=== PATIENT | female | born 1995 | race Caucasian/White ===

== ENCOUNTER 2019-08-11 06:21 | Emergency (ER) | payer OTHER ==
[2019-08-11 07:27] LABS: ACETAMINOPHEN <2.0 ug/mL; BLOOD UREA NITROGEN,BUN 11 mg/dL (7.0-18.0); CARBON DIOXIDE,CO2 27.5 mmol/L (21.0-32.0); CHLORIDE,CL 105 mmol/L (98-107); GLUCOSE RANDOM 102 mg/dL (74-106); POTASSIUM,K 3.8 mmol/L (3.5-5.1); SODIUM,NA 141 mmol/L (136-145)
--- NOTE | 2019-08-11 07:28 | EDM.PDOCBH ---
ED HPI GENERAL MEDICAL PROBLEM - General Chief Complaint: Behavioral/Psych Stated Complaint: SUICIDIAL IDEATION Time Seen by Provider: 08/11/19 07:15 Source of Information: Reports: Patient History Limitations: Reports: No Limitations - History of Present Illness INITIAL COMMENTS - FREE TEXT/NARRATIVE: 23-year-old female with history of bipolar disorder presents with suicidal ideation. She claims that she has been feeling down lately, feeling depressed. She has access to a 9 mm at home. Her same-sex fianc who she lives with at her house was previously seeing a male partner and yesterday decided to break it off with the male partner. She thought about killing herself but now claims that she would never do it because it would be too loud and messy. She denies any physical complaints or hallucinations or homicidal ideations. ROS: A 10-point review of systems, other than pertinent positives and negatives as stated per HPI, is otherwise negative PHYSICAL EXAM General: AOx4, GCS = 15, No distress HEENT: dry mucous membrane Neck: supple, no meningismus, no Kernig or Brudzinski Cardiac: S1S2 RRR Respiratory: CTAB, no crackles or rales, no wheezing Abdomen: Soft, nontender, no rebound or guarding, nondistended, no pulsatile mass. Back: nontender Musculoskeletal: NVI distally, no deformity Neuro: No focal deficits, CN 2 - 12 WNL. Psych: Denies HI, SI, VH, AH. MEDICAL DECISION MAKING: I reviewed the patients past medical records, lab and radiographic findings. I discussed the case with family members. My differential diagnosis included: Suicidal ideation, homicidal ideation, auditory hallucinations, electrolyte abnormalities. - Related Data Allergies Allergy/AdvReac Type Severity Reaction Status Date / Time cephalexin [From Keflex] Allergy Hives Verified 08/11/19 07:33 Penicillins Allergy Cannot Verified 08/11/19 07:33 Remember Home Meds: Home Meds ALPRAZolam [Xanax] 0.5 mg PO DAILY 08/11/19 [History] Citalopram Hydrobromide [Celexa] 40 mg PO DAILY 08/11/19 [History] Iron 27 mg PO DAILY 08/11/19 [History] Levothyroxine Sodium [Euthyrox] 137 mcg PO DAILY 08/11/19 [History] Lurasidone HCl [Latuda] 80 mg PO DAILY 08/11/19 [History] Lurasidone [Latuda] 100 mg PO QPM #30 tablet 08/11/19 [Rx] Topiramate [Topamax] 50 mg PO DAILY 08/11/19 [History] Topiramate [Topamax] 100 mg PO BEDTIME #30 tab 08/11/19 [Rx] ED ROS GENERAL - Review of Systems Review Of Systems: See Below (see dictation) ED EXAM, BEHAVIORAL HEALTH - Physical Exam Exam: See Below (see dictation) COURSE, BEHAVIORAL HEALTH COMP - Course Vital Signs: Last Vital Signs Temp 96.6 F L 08/11/19 06:40 Pulse 62 08/11/19 06:40 Resp 20 08/11/19 06:40 BP 131/92 H 08/11/19 06:40 Pulse Ox 98 08/11/19 06:40 Orders, Labs, Meds: Active Orders 24 hr Category Date Time Status EKG Documentation Completion [RC] STAT Care 08/11/19 06:36 Active Laboratory Tests 08/11/19 08/11/19 08/11/19 Range/Units 06:38 06:38 06:38 WBC (4.0-11.0) K/uL RBC (4.30-5.90) M/uL Hgb (12.0-16.0) g/dL Hct (36.0-46.0) % MCV (80.0-98.0) fL MCH (27.0-32.0) pg MCHC (31.0-37.0) g/dL RDW Std Deviation (28.0-62.0) fl RDW Coeff of Harmony (11.0-15.0) % Plt Count (150-400) K/uL MPV (7.40-12.00) fL Neut % (Auto) (48.0-80.0) % Lymph % (Auto) (16.0-40.0) % Teller % (Auto) (0.0-15.0) % Eos % (Auto) (0.0-7.0) % Baso % (Auto) (0.0-1.5) % Neut # (Auto) (1.4-5.7) K/uL Lymph # (Auto) (0.6-2.4) K/uL Teller # (Auto) (0.0-0.8) K/uL Eos # (Auto) (0.0-0.7) K/uL Baso # (Auto) (0.0-0.1) K/uL Sodium (136-145) mmol/L Potassium (3.5-5.1) mmol/L Chloride (98-107) mmol/L Carbon Dioxide (21.0-32.0) mmol/L BUN (7.0-18.0) mg/dL Creatinine (0.6-1.0) mg/dL Est Cr Clr Drug Dosing Estimated GFR (MDRD) ml/min Glucose (74-106) mg/dL Calcium (8.5-10.1) mg/dL Magnesium (1.8-2.4) mg/dL Total Bilirubin (0.2-1.0) mg/dL AST (15-37) IU/L ALT (14-63) IU/L Alkaline Phosphatase (46-116) U/L Total Protein (6.4-8.2) g/dL Albumin (3.4-5.0) g/dL Globulin (2.6-4.0) g/dL Albumin/Globulin Ratio (0.9-1.6) TSH 3rd Generation (0.36-3.74) uIU/mL Urine Color YELLOW Urine Appearance CLEAR Urine pH 6.0 (5.0-8.0) Ur Specific Gleason >= 1.030 (1.001-1.035) Urine Protein NEGATIVE (NEGATIVE) mg/dL Urine Glucose (UA) NEGATIVE (NEGATIVE) mg/dL Urine Ketones NEGATIVE (NEGATIVE) mg/dL Urine Occult Blood SMALL H (NEGATIVE) Urine Nitrite NEGATIVE (NEGATIVE) Urine Bilirubin NEGATIVE (NEGATIVE) Urine Urobilinogen 0.2 (<2.0) EU/dL Ur Leukocyte Esterase NEGATIVE (NEGATIVE) Urine RBC 0-2 (0-2/HPF) Urine WBC 0-2 (0-5/HPF) Ur Epithelial Cells OCCASIONAL (NONE-FEW) Urine Bacteria RARE (NEGATIVE) Urine Mucus LIGHT (NONE-MOD) Urinalysis Comment Urine HCG, Qual NEGATIVE (NEGATIVE) Salicylates (0-20) mg/dL Urine Opiates Screen NEGATIVE (NEGATIVE) Ur Oxycodone Screen NEGATIVE (NEGATIVE) Urine Methadone Screen NEGATIVE (NEGATIVE) Acetaminophen ug/mL Ur Barbiturates Screen NEGATIVE (NEGATIVE) Ur Phencyclidine Scrn NEGATIVE (NEGATIVE) Ur Amphetamine Screen NEGATIVE (NEGATIVE) U Methamphetamines Scrn NEGATIVE (NEGATIVE) U Benzodiazepines Scrn POSITIVE (NEGATIVE) U Cocaine Metab Screen NEGATIVE (NEGATIVE) U Marijuana (THC) Screen POSITIVE (NEGATIVE) Ethyl Alcohol mg/dL 08/11/19 08/11/19 Range/Units 06:50 06:50 WBC 7.98 (4.0-11.0) K/uL RBC 4.79 (4.30-5.90) M/uL Hgb 14.6 (12.0-16.0) g/dL Hct 43.5 (36.0-46.0) % MCV 90.8 (80.0-98.0) fL MCH 30.5 (27.0-32.0) pg MCHC 33.6 (31.0-37.0) g/dL RDW Std Deviation 41.8 (28.0-62.0) fl RDW Coeff of Harmony 13 (11.0-15.0) % Plt Count 238 (150-400) K/uL MPV 10.40 (7.40-12.00) fL Neut % (Auto) 59.3 (48.0-80.0) % Lymph % (Auto) 30.7 (16.0-40.0) % Teller % (Auto) 8.0 (0.0-15.0) % Eos % (Auto) 1.5 (0.0-7.0) % Baso % (Auto) 0.5 (0.0-1.5) % Neut # (Auto) 4.7 (1.4-5.7) K/uL Lymph # (Auto) 2.5 H (0.6-2.4) K/uL Teller # (Auto) 0.6 (0.0-0.8) K/uL Eos # (Auto) 0.1 (0.0-0.7) K/uL Baso # (Auto) 0.0 (0.0-0.1) K/uL Sodium 141 (136-145) mmol/L Potassium 3.8 (3.5-5.1) mmol/L Chloride 105 (98-107) mmol/L Carbon Dioxide 27.5 (21.0-32.0) mmol/L BUN 11 (7.0-18.0) mg/dL Creatinine 1.4 H (0.6-1.0) mg/dL Est Cr Clr Drug Dosing TNP Estimated GFR (MDRD) 45.8 ml/min Glucose 102 (74-106) mg/dL Calcium 9.0 (8.5-10.1) mg/dL Magnesium 2.0 (1.8-2.4) mg/dL Total Bilirubin 0.5 (0.2-1.0) mg/dL AST 23 (15-37) IU/L ALT 44 (14-63) IU/L Alkaline Phosphatase 78 (46-116) U/L Total Protein 6.9 (6.4-8.2) g/dL Albumin 3.8 (3.4-5.0) g/dL Globulin 3.1 (2.6-4.0) g/dL Albumin/Globulin Ratio 1.2 (0.9-1.6) TSH 3rd Generation 1.12 (0.36-3.74) uIU/mL Urine Color Urine Appearance Urine pH (5.0-8.0) Ur Specific Gleason (1.001-1.035) Urine Protein (NEGATIVE) mg/dL Urine Glucose (UA) (NEGATIVE) mg/dL Urine Ketones (NEGATIVE) mg/dL Urine Occult Blood (NEGATIVE) Urine Nitrite (NEGATIVE) Urine Bilirubin (NEGATIVE) Urine Urobilinogen (<2.0) EU/dL Ur Leukocyte Esterase (NEGATIVE) Urine RBC (0-2/HPF) Urine WBC (0-5/HPF) Ur Epithelial Cells (NONE-FEW) Urine Bacteria (NEGATIVE) Urine Mucus (NONE-MOD) Urinalysis Comment Urine HCG, Qual (NEGATIVE) Salicylates 1.5 (0-20) mg/dL Urine Opiates Screen (NEGATIVE) Ur Oxycodone Screen (NEGATIVE) Urine Methadone Screen (NEGATIVE) Acetaminophen <2.0 ug/mL Ur Barbiturates Screen (NEGATIVE) Ur Phencyclidine Scrn (NEGATIVE) Ur Amphetamine Screen (NEGATIVE) U Methamphetamines Scrn (NEGATIVE) U Benzodiazepines Scrn (NEGATIVE) U Cocaine Metab Screen (NEGATIVE) U Marijuana (THC) Screen (NEGATIVE) Ethyl Alcohol < 3.0 mg/dL Re-Assessment/Re-Exam: 08/11/2019 0817: Case discussed with Dr. Darnell with tele-psych, will initiate consult with the patient. Re-Assessment/Re-Exam Time: 10:34 (Dr. Darnell assessed the patient via tele-psych , states patient is stable for discharge, she denies suicidality, she contracts to safety. She recommends adjusting the Latuda to 100 mg at night, increasing the Topamax from 50 to 100 mg to nighttime. And follow-up with him in the clinic on August 29. I reassessed the patient, she voices no suicidality, she does contract for safety. I also spoke with her fianc, who will watch her for any worsening symptoms, I encouraged her to come back to the ER if there are any worsening symptoms or if she has any thoughts of hurting herself. Patient and her fianc agrees with the plan. They will both drive the gun down to [place] and leave the gun her parents house so then the patient does not have access to the gun. I spoke with her fianc in the ER, she is calm and coherent, agreeable with the plan for discharge.) Departure - Departure Time of Disposition: 10:32 Disposition: Home, Self-Care 01 Condition: Good Clinical Impression: Adjustment disorder, Depression, Depressive disorder - Discharge Information *PRESCRIPTION DRUG MONITORING PROGRAM REVIEWED*: Not Applicable *COPY OF PRESCRIPTION DRUG MONITORING REPORT IN PATIENT ERNESTO: Not Applicable Prescriptions: Lurasidone [Latuda] 100 mg PO QPM #30 tablet Topiramate [Topamax] 100 mg PO BEDTIME #30 tab Instructions: Suicidal Feelings: How to Help Yourself, Living With Depression, Adjustment Disorder, Adult Referrals: Jay Darnell MD [Physician] - 08/30/19 11:00 am Forms: ED Department Discharge Additional Instructions: The following information is given to patients seen in the emergency department who are being discharged to home. This information is to outline your options for follow-up care. We provide all patients seen in our emergency department with a follow-up referral. The need for follow-up, as well as the timing and circumstances, are variable depending upon the specifics of your emergency department visit. If you don't have a primary care physician on staff, we will provide you with a referral. We always advise you to contact your personal physician following an emergency department visit to inform them of the circumstance of the visit and for follow-up with them and/or the need for any referrals to a consulting specialist. The emergency department will also refer you to a specialist when appropriate. This referral assures that you have the opportunity for follow-up care with a specialist. All of these measure are taken in an effort to provide you with optimal care, which includes your follow-up. Under all circumstances we always encourage you to contact your private physician who remains a resource for coordinating your care. When calling for follow-up care, please make the office aware that this follow-up is from your recent emergency room visit. If for any reason you are refused follow-up, please contact the [facility] Emergency Department at and asked to speak to the emergency department charge nurse. Sepsis Event Note (ED) - Focused Exam Vital Signs: Vital Signs Temp Pulse Resp BP Pulse Ox 08/11/19 06:40 96.6 F L 62 20 131/92 H 98 08/11/19 06:35 96.6 F L 62 18 131/92 H 98
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
== END 2019-08-11 10:55 | disposition home or self-care (01) ==
LOC: MW.ED 06:21
DX: F32.9 Major depressive disorder, single episode, unspecified (principal); F43.20 Adjustment disorder, unspecified; Z88.1 Allergy status to other antibiotic agents; Z88.0 Allergy status to penicillin; Z79.899 Other long term (current) drug therapy
CPT/HCPCS: 36415; 80053; 80305-QW; 80307; 81001; 81025; 83735; 84443; 85025; 93005; 99284; 99285-25